=== PATIENT | male | born 1975 | race Hispanic/Latino ===

== ENCOUNTER 2017-05-08 15:30 | Emergency (ER) | payer MEDICAID ==
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
[2017-05-08 16:56] VITALS: BP 142/79
== END 2017-05-08 19:30 | disposition other institution (70) ==
LOC: EEVIPCON 15:30 → ED 15:30
DX: F39 Unspecified mood [affective] disorder (principal); F20.0 Paranoid schizophrenia; Z79.82 Long term (current) use of aspirin
CPT/HCPCS: 99283

== ENCOUNTER 2018-05-20 19:27 | Emergency (ER) | payer MEDICAID ==
[2018-05-20 20:37] LABS: Basophils % (Auto) 0.6 % (0.0-1.8); Eosinophils # (Auto) 0.1 K/mm3 (0.0-0.4); Eosinophils % (Auto) 1.2 % (0.0-4.3); Hematocrit 37.9 % (35.5-45.6); Hemoglobin 13.4 gm/dl (11.8-15.2); Lymphocytes # (Auto) 2.8 K/mm3 (1.2-5.4); Mean Corpuscular HGB Conc 35 % (32-34); Mean Corpuscular Hemoglobin 35 pg (28-32); Mean Corpuscular Volume 99 fl (84-94); Monocytes # (Auto) 0.5 K/mm3 (0.0-0.8); Monocytes % (Auto) 6.9 % (0.0-7.3); Platelet Count 239 K/mm3 (140-440); Red Blood Count 3.83 M/mm3 (3.65-5.03); Red Cell Distribution Width 13.5 % (13.2-15.2)
[2018-05-20 21:12] LABS: BUN/Creatinine Ratio 8; Blood Urea Nitrogen 8 mg/dL (9-20); Calcium 9.2 mg/dL (8.4-10.2); Hemolysis Index 5
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
[2018-05-20] MEDS ORDERED: NON-FORMULARY (Haloperidol [Haloperidol] 10 MG) PO SCH (23:00)
[2018-05-21] MEDS: HALDOL PO SCH ×3 (00:12→22:50)
[2018-05-21] MEDS: DESYREL PO SCH ×2 (00:12→22:50)
[2018-05-21] MEDS ORDERED: CLONAZEPAM 0.5 MG PO SCH (08:00)
[2018-05-21] MEDS: BABY ASPIRIN PO SCH (09:36)
[2018-05-21] MEDS: celeXA PO SCH (09:36)
[2018-05-21] MEDS: PROTONIX PO SCH (09:37)
[2018-05-21] MEDS ORDERED: NON-FORMULARY (Omeprazole [Omeprazole] 40 MG) PO SCH (10:00)
[2018-05-21] MEDS: TRICOR PO SCH (11:50)
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
[2018-05-21] MEDS ORDERED: TRAZODONE HCL 300 MG PO SCH (22:00)
[2018-05-22 08:15] LABS: Alanine Aminotransferase 37 units/L (7-56); Lipase 54 units/L (13-60)
[2018-05-22 09:35] LABS: Bilirubin,Urine NEG (Negative); Blood,Urine NEG (Negative); Color,Urine Yellow (Yellow); Protein,Urine <15 mg/dL mg/dL (Negative); Urobilinogen,Urine < 2.0 mg/dL (<2.0)
[2018-05-22 10:00] LABS: Amphetamine Screen,Urine PRESUMPTIVE NEGATIVE; Benzodiazepines Screen,Urine PRESUMPTIVE NEGATIVE; Cannabinoid Screen,Urine PRESUMPTIVE NEGATIVE; Cocaine Screen,Urine PRESUMPTIVE NEGATIVE; Methadone Screen,Urine PRESUMPTIVE NEGATIVE; Opiate Screen,Urine PRESUMPTIVE NEGATIVE
[2018-05-22] MEDS: TRICOR PO SCH (10:52)
[2018-05-22] MEDS: BABY ASPIRIN PO SCH (12:19)
[2018-05-22] MEDS: celeXA PO SCH (12:19)
[2018-05-22] MEDS: HALDOL PO SCH ×2 (12:20→22:09)
[2018-05-22] MEDS: PROTONIX PO SCH (12:20)
--- NOTE | 2018-05-22 13:25 | Progress Note ---
Subjective - Reason for Consult Consult date: 05/22/18 Reason for consult: Psychiatry Follow-up - Chief Complaint Chief complaint: "I am okay now" 43-year-old male who presents to the emergency room with paranoid delusions. Today the patient is calm and cooperative during the assessment. He was lucid and organized during the interview. He stated that he was having a "moment" at his residence and acted out. He stated that he would do a better job at handling stressful situations. He denies that somebody is controlling him per his initial assessment. He denies SI/HI's and AVH's. He stated that his psychiatrist is Dr Galeano. He denies any side effects of his medications. Mental Status Exam - Vital signs Last Vital Signs Temp 98.4 F 05/20/18 22:42 Pulse 77 05/20/18 22:42 Resp 18 05/20/18 22:42 BP 121/82 05/20/18 22:42 Pulse Ox 96 05/20/18 22:42 - Exam Narrative exam: MSE: Appearance: calm, cooperative Behavior: regular eye contact Speech: regular rate and tone Mood: "okay" Affect: congruent to mood Thought Process: more organized Thought Content: denies SI/HI's and AVH's Motor Activity: sitting up in the bed Cognition: A/O x 3 Insight: fair Judgment: fair Assessment and Plan Impression: Hx of Schizophrenia, paranoid type. Today the patient is calm and cooperative during the assessment. Recommendation/Plan: The patient can follow up with his psychiatrist Dr Galeano for outpatient psy services. The patient do not need any prescriptions when discharge. Case mgmt involvement, the patient will need assistance with transportation back to his [facility].
[2018-05-22] MEDS: DESYREL PO SCH (22:09)
[2018-05-23] MEDS: BABY ASPIRIN PO SCH (10:46)
[2018-05-23] MEDS: HALDOL PO SCH ×2 (10:46→22:56)
[2018-05-23] MEDS: celeXA PO SCH (10:46)
[2018-05-23] MEDS: PROTONIX PO SCH (10:46)
[2018-05-23] MEDS: TRICOR PO SCH (10:47)
[2018-05-23] MEDS: DESYREL PO SCH (22:56)
[2018-05-24] MEDS: HALDOL PO SCH ×2 (09:45→21:36)
[2018-05-24] MEDS: BABY ASPIRIN PO SCH (09:45)
[2018-05-24] MEDS: TRICOR PO SCH (09:45)
[2018-05-24] MEDS: PROTONIX PO SCH (09:45)
[2018-05-24] MEDS: celeXA PO SCH (09:45)
[2018-05-24] MEDS: DESYREL PO SCH (21:35)
[2018-05-24 22:11] VITALS: BP 131/89
== END 2018-05-25 00:15 | disposition other institution (70) ==
LOC: EEVIPCON 19:27 → ED 19:27
DX: F91.8 Other conduct disorders (principal); K21.9 Gastro-esophageal reflux disease without esophagitis; F20.0 Paranoid schizophrenia; F32.9 Major depressive disorder, single episode, unspecified; F41.9 Anxiety disorder, unspecified; E78.5 Hyperlipidemia, unspecified; F17.200 Nicotine dependence, unspecified, uncomplicated; Z79.82 Long term (current) use of aspirin
CPT/HCPCS: 36415; 80048; 80164; 80307; 81001; 82150; 83690; 84075; 84450; 84460; 85025; 99285; A9270; G0480; 80320